=== PATIENT | female | born 1945 | race Caucasian/White ===

== ENCOUNTER 2018-09-24 08:51 | Day surgery (SDC) | payer BC ==
[~2018-09-24 08:51] MED LIST: LIDOCAINE 2% (SDV) 5 ML INJ; PROPOFOL 200 MG INJ
[2018-09-24] MEDS ORDERED: SOD CHLORIDE 0.9% 1,000 ML IV (09:00)
[2018-09-24] MEDS: TROPICAMIDE 1% 3 ML OPH OPER (10:15)
[2018-09-24] MEDS: MOXIFLOXACIN 0.5% 3 ML OPH OPER (10:15)
[2018-09-24] MEDS: CYCLOPENTOLATE/PHENYLEPH 2 ML OPH OPER (10:16)
[2018-09-24] MEDS: DICLOFENAC 0.1% 2.5 ML OPH OPER (10:21)
[2018-09-24] MEDS: INSULIN ASPART [NOVOLOG] 3 ML PEN SC (11:50)
[2018-09-24] MEDS ORDERED: DEXAMETHASONE 4 MG/ML 1 ML INJ ×2 (12:05→13:10)
[2018-09-24] MEDS ORDERED: CEFAZOLIN 1 GM INJ ×2 (12:05→13:10)
[2018-09-24] MEDS ORDERED: LIDOCAINE 4% (MPF) 5 ML INJ ×2 (12:05→13:10)
[2018-09-24] MEDS ORDERED: NA HYALURONATE/CHONDROITIN 0.5 ML SYG ×2 (12:05→13:10)
[2018-09-24] MEDS ORDERED: CARBACHOL 0.01% 1.5 ML OPH INJ ×2 (12:05→13:10)
== END 2018-09-24 14:28 | disposition home or self-care (01) ==
LOC: SDS 08:51
DX: H25.11 Age-related nuclear cataract, right eye (principal); I10 Essential (primary) hypertension; E78.5 Hyperlipidemia, unspecified; E11.9 Type 2 diabetes mellitus without complications; E03.9 Hypothyroidism, unspecified
CPT/HCPCS: 66984